=== PATIENT | male | born 1940 | race Caucasian/White ===

== ENCOUNTER 2021-08-09 08:55 | Emergency (ER) | payer MEDICARE ==
[2021-08-09 10:03] LABS: BASOPHIL 0.5 % (0-2); EOSINOPHIL 1.6 % (0-7); HCT 42.6 % (42.0-52.0); LYMPHOCYTE 7.6 % (15-48); MCH 29.4 pg (25.0-31.0); MCHC 32.9 g/dL (32.0-36.0); MCV 89.3 fL (78.0-100.0); MONOCYTE 7.3 % (0-12); MPV 9.4 fL (6.0-9.5); NEUTROPHIL 82.5 % (41-80); NRBC 0; PLT 260 K/uL (150-400); RBC 4.77 M/uL (4.70-6.00); RDW 13.4 % (11.5-14.0); WBC 8.3 K/uL (4.0-10.5)
[2021-08-09 10:23] LABS: ALBUMIN 3.9 g/dL (3.4-5.0); BILIRUBIN - TOTAL 0.5 mg/dL (0.2-1.0); BUN/CREAT RATIO (CALC) 13.1 RATIO; CREATININE 1.22 mg/dL (0.67-1.17); GLOBULIN (CALCULATION) 3.8 g/dL; POTASSIUM 4.2 mmol/L (3.5-5.1); TOTAL PROTEIN 7.7 g/dL (6.4-8.2)
[2021-08-09] MEDS ORDERED: CYCLOBENZAPRINE10 MG PO (10:37)
== END 2021-08-09 10:59 | disposition home or self-care (01) ==
LOC: FER 08:55
PROVIDERS: Emergency Medicine
DX: M54.81 Occipital neuralgia (principal); N18.9 Chronic kidney disease, unspecified; R03.0 Elevated blood-pressure reading, without diagnosis of hypertension
CPT/HCPCS: 36415; 70450; 71046; 80053; 82553; 84484; 85025; 93005